=== PATIENT | female | born 1955 | race Caucasian/White ===

== ENCOUNTER → 2018-09-19 08:14 | Day surgery (SDC) | payer BC, MEDICARE ==
[~2018-09-19 08:14] MED LIST: Buffered Lidocaine 1% SYRIN* 1 ML/SYRINGE INTRADERM ONE; Famotidine IV* 10 MG/ML 2 ML (20 mg) ONE; Naloxone* 0.4 MG/ML 1 ML VIAL IV PRN; Ondansetron INJ* 2 MG/ML VIAL IV PRN; fentaNYL* 50 MCG/ML 2 ML VIAL (100 MCG VIAL) IV PRN
[2018-09-19 13:01] VITALS: BP 115/60
--- NOTE | 2018-09-19 21:41 | PRO ---
CC: Dr. Sly Huitron * EGD AND COLONOSCOPY REPORT: DATE OF PROCEDURE: 09/19/18 - [facility]IMARY [facility] PHYSICIAN: Dr. Sly Huitron. INDICATION FOR PROCEDURE: Positive Cologuard and reflux. PROCEDURE PERFORMED: Complete colonoscopy to the cecum with biopsies and spot tattoo along with complete esophagogastroduodenoscopy with biopsies. MEDICATIONS GIVEN: Please see anesthesia record. DESCRIPTION OF PROCEDURE: After the EGD and colonoscopy procedure including the risks, benefits, and alternatives with the risks not limited to perforation , surgery, missed lesions, and/or were explained to the patient, written informed consent was obtained, IV medication was given and a bite block was placed between the teeth. The adult Olympus gastroscope was then inserted into the patient's oropharynx into the tubular esophagus. In the tubular esophagus, at the distal junction, there were mild variabilities. This was biopsied to rule out reflux. The scope was then advanced through the lower esophageal sphincter into the stomach. On retroflexion, a 2-cm hiatal hernia was appreciated in the antegrade view, although actually there was some pyloric stenosis that was present. I was able to gently facilitate the adult scope through this area with some slight trauma dilation from the scope. I did take a biopsy of the pyloric channel. The scope was then advanced into the duodenum. The bulb was normal in appearance and the C loop and distal duodenum were normal in appearance. The scope was then removed from the patient. She tolerated the procedure well. She was then given additional IV sedation medication. A rectal exam was then performed. The rectal exam was unremarkable. The adult Olympus colonoscope was then inserted into the patient' s rectum and advanced very carefully through the entirety of the colon into the cecal base. Cecal base was carefully inspected and normal in appearance. Preparation was good. The terminal ileal valve was identified and normal in appearance. Over the next 10 minutes, the scope was carefully withdrawn inspecting the mucosa. At 70, 65, and 35 cm, there were patchy areas with apparently almost lymphoid infiltration and edema and hyperemia. These were all biopsied. A larger patch at 70 cm was tattooed just distal to this around 68 cm. The scope was then removed to the rectum. Direct views were normal. On retroflexion, the views were normal as well. The scope was then removed from the patient. She tolerated the procedure well. She returned to the recovery room in stable condition. IMPRESSION: 1. Complete esophagogastroduodenoscopy with biopsies. 2. Mild pyloric stenosis, status post dilatation with the scope. 3. A 2-cm hiatal hernia. 4. Mild GE junction variability, biopsied. 5. Complete colonoscopy to the cecum. 6. Biopsy of lymphoid patches with hyperemia and edema at 70, 65, and 35 cm respectively. 7. Tattoo of the larger patch just distal at 68 cm. RECOMMENDATIONS: Await results of biopsies. She may have had a ulcer in the past in the antrum that has led to this pyloric stenosis. I did take a biopsy of the channel. We will also follow up on the results of the biopsies of the cecum for further management. [id number] #: [id number] [email or web address]
== END | disposition home or self-care (01) ==
LOC: OR 08:14
PROVIDERS: ATTEND Internal Medicine Gastroenterology
DX: K21.9 Gastro-esophageal reflux disease without esophagitis (principal); R10.13 Epigastric pain; R85.89 Other abnormal findings in specimens from digestive organs and abdominal cavity; D12.2 Benign neoplasm of ascending colon; K62.5 Hemorrhage of anus and rectum; K31.1 Adult hypertrophic pyloric stenosis; K44.9 Diaphragmatic hernia without obstruction or gangrene; K52.9 Noninfective gastroenteritis and colitis, unspecified; K20.9 Esophagitis, unspecified; K29.50 Unspecified chronic gastritis without bleeding; K59.00 Constipation, unspecified; G89.29 Other chronic pain; Z79.891 Long term (current) use of opiate analgesic; M79.7 Fibromyalgia; N30.10 Interstitial cystitis (chronic) without hematuria; I10 Essential (primary) hypertension
CPT/HCPCS: 87077; 88305; 88342